=== PATIENT | male | born 1975 | race Caucasian/White ===

== ENCOUNTER 2022-01-28 06:12 | Day surgery (SDC) | payer OTHER ==
[~2022-01-28 06:12] MED LIST: ACID REDUCER20 M1 PO; ALDACTONE100 MG PO; CLONAZEPAM1 MG PO; DAFLONEX-XL 11300 MG PO; GABAPENTIN600 MG PO; GLIMEPIRIDE4 M1 PO; HYZAAR 100-251 EACH PO; LASIX20 MG PO; PEPCID40 MG PO; RESTORIL30 M1 PO; SEROQUEL300 MG PO; TOPROL XL50 M1 PO; TRAZODONE HCL150 MG PO; ULTRACET PO; ULTRAM50 MG PO; ZOCOR20 MG PO
== END 2022-01-28 15:45 | disposition home or self-care (01) ==
LOC: CIR.AMB 06:12
PROVIDERS: ATTEND Specialist
DX: C18.4 Malignant neoplasm of transverse colon (principal); K74.60 Unspecified cirrhosis of liver; I10 Essential (primary) hypertension; I34.1 Nonrheumatic mitral (valve) prolapse; Z20.822 Contact with and (suspected) exposure to COVID-19